=== PATIENT | female | born 1965 | race Caucasian/White ===

== ENCOUNTER 2016-12-14 13:24 | Day surgery (SDC) | payer OTHER ==
[~2016-12-14 13:24] MED LIST: ADVAIR 100-501 EACH IH; ADVAIR 250/501 DISK IH; B-121000 MC1 SL; BENZONATATE100 MG PO; CALCIUM ACETAT667 MG PO; CHRONULAC,CEPHUL1 ML PO; CONSTULOSE10 GM/15 M PO; COUMADIN5 MG PO; CYANOCOBALAM1000 MCG PO; DIALYVITE TABL1 EACH PO; DUONEB 2.5-0.5 M3 ML AEROSOL; DUONEB 2.5-0.5 M3 ML IH; GABAPENTIN300 MG PO; GRALISE300 MG PO; INCRUSE ELLI62.5 MCG IH; IPRATR-ALBUTEROL3 ML IH; LACTULOSE10 GM/151 PO; LEVOFLOXACIN500 MG PO; LEVOFLOXACIN750 MG PO; MICRO-K,K-DUR,10 ME1 PO; MULTIPLE VITAM1 EACH PO; NEURONTIN300 MG PO; NICOTINE PATCH1 EAC2 TD; NOHOMEMEDS; OMEPRAZOLE40 M1 PO; OXAYDO5 MG PO; OXYCODONE10 MG PO; PERCOCET 5/31 TABLET PO; PREDNISONE10 MG PO; PROAIR HFA8.5 GM IH; PROVENTIL HFA6.7 GM IH; SPIRONOLACTONE100 MG PO; SPIRONOLACTONE50 MG PO; TRAMADOL HCL50 MG PO; VITAMIN B-6100 MG PO; WARFARIN SODIU2.5 MG PO; WARFARIN SODIU7.5 MG PO; WARFARIN SODIUM1 MG PO; WARFARIN SODIUM10 MG PO; WARFARIN SODIUM5 MG PO; ZOFRAN4 MG PO
[2016-12-14 15:29] LABS: METH RESISTANT S AUREUS PCR NEGATIVE (NEGATIVE)
[2016-12-14 15:49] LABS: PROBE CHECK PASS; SPECIMEN PROCESSING CONTROL PASS
== END 2016-12-14 17:25 | disposition home or self-care (01) ==
LOC: CATH 13:24
PROVIDERS: Surgery
DX: T82.868A Thrombosis due to vascular prosthetic devices, implants and grafts, initial encounter (principal); Y83.2 Surgical operation with anastomosis, bypass or graft as the cause of abnormal reaction of the patient, or of later complication, without mention of misadventure at the time of the procedure; N18.6 End stage renal disease; Z99.2 Dependence on renal dialysis; K21.9 Gastro-esophageal reflux disease without esophagitis; B18.2 Chronic viral hepatitis C; K74.60 Unspecified cirrhosis of liver; R18.8 Other ascites
CPT/HCPCS: 87641; C1725; C1757; C1769; C1874; C1887; C1894; C2628; J0690; J1644; J2250; J3010; S0020

== ENCOUNTER 2017-01-18 11:55 | Day surgery (SDC) | payer OTHER ==
[2017-01-18 13:52] LABS: METH RESISTANT S AUREUS PCR NEGATIVE (NEGATIVE)
[2017-01-18 13:53] LABS: PROBE CHECK PASS; SPECIMEN PROCESSING CONTROL PASS
== END 2017-01-18 14:00 | disposition home or self-care (01) ==
LOC: CATH 11:55
PROVIDERS: Surgery
DX: T82.858A Stenosis of other vascular prosthetic devices, implants and grafts, initial encounter (principal); I87.1 Compression of vein; Y83.2 Surgical operation with anastomosis, bypass or graft as the cause of abnormal reaction of the patient, or of later complication, without mention of misadventure at the time of the procedure; N18.6 End stage renal disease; Z99.2 Dependence on renal dialysis; J45.909 Unspecified asthma, uncomplicated; M19.90 Unspecified osteoarthritis, unspecified site; Z86.718 Personal history of other venous thrombosis and embolism; Z86.711 Personal history of pulmonary embolism; Z79.01 Long term (current) use of anticoagulants; F17.200 Nicotine dependence, unspecified, uncomplicated
CPT/HCPCS: 87641; C1725; C1769; C1894; J1644; J2250; J3010

== ENCOUNTER 2017-03-04 12:29 | Day surgery (SDC) | payer OTHER ==
[2017-03-04 14:35] LABS: METH RESISTANT S AUREUS PCR NEGATIVE (NEGATIVE); PROBE CHECK PASS; SPECIMEN PROCESSING CONTROL PASS
== END 2017-03-04 15:00 | disposition home or self-care (01) ==
LOC: CATH 12:29
PROVIDERS: Surgery
DX: T82.868A Thrombosis due to vascular prosthetic devices, implants and grafts, initial encounter (principal); T82.858A Stenosis of other vascular prosthetic devices, implants and grafts, initial encounter; Y83.1 Surgical operation with implant of artificial internal device as the cause of abnormal reaction of the patient, or of later complication, without mention of misadventure at the time of the procedure; Y83.2 Surgical operation with anastomosis, bypass or graft as the cause of abnormal reaction of the patient, or of later complication, without mention of misadventure at the time of the procedure; N18.6 End stage renal disease; Z99.2 Dependence on renal dialysis
CPT/HCPCS: 87641; C1725; C1757; C1769; C1894; C2628; J0690; J1644; J2250; J3010; S0020

== ENCOUNTER → 2017-03-21 | Outpatient (CLI) | payer OTHER ==
[~2017-03-21] MED LIST changes: +BENADRYL25 MG PO; +MAGNESIUM400 M1 PO; +PLAVIX75 MG PO
== END | disposition home or self-care (01) ==
LOC: CDC 14:23
DX: I21.3 ST elevation (STEMI) myocardial infarction of unspecified site (principal); I25.10 Atherosclerotic heart disease of native coronary artery without angina pectoris
CPT/HCPCS: 93000

== ENCOUNTER 2017-03-22 13:25 | Day surgery (SDC) | payer OTHER ==
[~2017-03-22] VITALS: Ht 175.3 cm; Wt 58.0 kg
[~2017-03-22 13:25] MED LIST changes: -BENADRYL25 MG PO
[2017-03-22 14:12] LABS: EOSINOPHIL (%) 1.4 % (0-5); EOSINOPHIL COUNT 0.1 K/uL (0-0.3); HEMATOCRIT 38.8 % (36.0-46.0); IMMATURE GRANULOCYTE (%) 0.3 % (0.0-0.7); INSTRUMENT ABS NEUTROPHIL CT 6.8 K/uL; LYMPHOCYTE COUNT 1.2 K/uL (1.0-2.8); MCHC 31.4 G/DL (30.0-36.0); MCV 98.5 FL (83-99); MEAN PLAT.VOLUME 8.4 uM^3 (9.5-12.4); MONOCYTE (%) 5.7 % (3-12); MONOCYTE COUNT 0.5 K/uL (0-0.8); NEUTROPHIL (%) 78.2 % (45-76); NEUTROPHIL COUNT 6.8 K/uL (1.8-6.4); PLATELET COUNT 161 K/uL (156-360); RBC DIS.WIDTH-CV 15.7 % (11.8-14.6); RBC DIS.WIDTH-SD 56.2 % (39-53); RED BLOOD COUNT 3.94 M/uL (3.80-5.20); WHITE BLOOD COUNT 8.7 K/uL (4.1-10.2)
[2017-03-22] MEDS ORDERED: BENADRYL25 MG PO (14:12)
[2017-03-22 14:20] VITALS: BP 98/66
[2017-03-22 14:33] LABS: ANION GAP 9 MEQ/L (2-14); CHLORIDE 95 MEQ/L (99-109); POTASSIUM 4.4 MEQ/L (3.7-5.4); SAMPLE HEMOLYSIS CHECK 0; SAMPLE ICTERIC CHECK 0; SAMPLE LIPEMIA CHECK 0; SODIUM 133 MEQ/L (136-147)
[2017-03-22 14:39] LABS: GFR ESTIMATE (CALCULATED) 25 mL/min/; GLUCOSE 89 mg/dL (70-99); UREA NITROGEN (BUN) 10 mg/dL (9-23)
[2017-03-22 15:34] LABS: METH RESISTANT S AUREUS PCR NEGATIVE (NEGATIVE)
[2017-03-22 15:45] LABS: PROBE CHECK PASS; SPECIMEN PROCESSING CONTROL PASS
[2017-03-22 20:35] VITALS: BP 113/68
== END 2017-03-22 20:40 | disposition home or self-care (01) ==
LOC: SDC
PROVIDERS: Surgery
PROC: 05WY0JZ Revision of Synthetic Substitute in Upper Vein, Open Approach (ICD-10-PCS; principal; 2017-03-22)
DX: T82.898A Other specified complication of vascular prosthetic devices, implants and grafts, initial encounter (principal); N18.6 End stage renal disease; Z99.2 Dependence on renal dialysis; Y83.2 Surgical operation with anastomosis, bypass or graft as the cause of abnormal reaction of the patient, or of later complication, without mention of misadventure at the time of the procedure
CPT/HCPCS: 80048; 85025; 87641; C1768; C2628; J0690; J1644; J2250; J2720; J3010

== ENCOUNTER 2017-05-12 23:35 | Emergency (ER) | payer OTHER ==
[~2017-05-12] VITALS: Ht 172.7 cm; Wt 61.2 kg
[~2017-05-12 23:35] MED LIST changes: +BENADRYL25 MG PO
[2017-05-13 01:04] LABS: HEMATOCRIT 34.6 % (36.0-46.0); MCH 32.1 PG (29.0-34.0); MCHC 31.8 G/DL (30.0-36.0); MCV 100.9 FL (83-99); MEAN PLAT.VOLUME 8.3 uM^3 (9.5-12.4); NRBC (%) 0.2 /100 WBC (0-0); PLATELET COUNT 115 K/uL (156-360); RBC DIS.WIDTH-CV 14.7 % (11.8-14.6); RBC DIS.WIDTH-SD 51.3 % (39-53); RED BLOOD COUNT 3.43 M/uL (3.80-5.20); WHITE BLOOD COUNT 8.7 K/uL (4.1-10.2)
[2017-05-13 01:16] LABS: CHLORIDE 104 mEq/L (99-109); POTASSIUM 4.5 mEq/L (3.7-5.4); SODIUM 140 mEq/L (136-147)
[2017-05-13 01:17] LABS: GLUCOSE 87 mg/dL (70-99)
[2017-05-13 01:19] LABS: ANION GAP 9 MEQ/L (2-14)
[2017-05-13 01:21] LABS: GFR ESTIMATE (CALCULATED) 15 mL/min/
[2017-05-13 01:22] LABS: UREA NITROGEN (BUN) 32 mg/dL (9-23)
[2017-05-13 01:32] LABS: PROTHROMBIN TIME 52.6 (9.2-11.2); PTT 47.1 (25-32)
[2017-05-13 01:47] LABS: INTER. NORMALIZED RATIO 4.9
[2017-05-13 02:55] VITALS: BP 134/72
== END 2017-05-13 03:04 | disposition left against medical advice (07) ==
LOC: EME 23:35
PROVIDERS: Emergency Medicine
DX: R22.32 Localized swelling, mass and lump, left upper limb (principal); Z86.718 Personal history of other venous thrombosis and embolism; Z79.01 Long term (current) use of anticoagulants; F17.200 Nicotine dependence, unspecified, uncomplicated
CPT/HCPCS: 80048; 85027; 85610; 85730; 93971; 99281; 99284

== ENCOUNTER 2017-06-06 06:56 | Day surgery (SDC) | payer OTHER ==
[~2017-06-06] VITALS: Ht 172.7 cm; Wt 58.1 kg
[~2017-06-06 06:56] MED LIST changes: +PANTOPRAZOLE SO40 MG PO
[2017-06-06 09:09] LABS: METH RESISTANT S AUREUS PCR NEGATIVE (NEGATIVE)
[2017-06-06 09:11] LABS: PROBE CHECK PASS; SPECIMEN PROCESSING CONTROL PASS
== END 2017-06-06 10:02 | disposition home or self-care (01) ==
LOC: CATH 06:56
PROVIDERS: Surgery
DX: T82.318A Breakdown (mechanical) of other vascular grafts, initial encounter (principal); I87.1 Compression of vein; N18.6 End stage renal disease; Z99.2 Dependence on renal dialysis; J44.9 Chronic obstructive pulmonary disease, unspecified; M19.90 Unspecified osteoarthritis, unspecified site; Z86.711 Personal history of pulmonary embolism; Z86.718 Personal history of other venous thrombosis and embolism; Z79.01 Long term (current) use of anticoagulants; F17.200 Nicotine dependence, unspecified, uncomplicated; Y83.2 Surgical operation with anastomosis, bypass or graft as the cause of abnormal reaction of the patient, or of later complication, without mention of misadventure at the time of the procedure
CPT/HCPCS: 87641; C1725; C1769; C1894; J1644; J2250; J3010

== ENCOUNTER 2017-07-18 07:00 | Day surgery (SDC) | payer OTHER ==
[~2017-07-18] VITALS: Ht 172.7 cm; Wt 59.0 kg
[2017-07-18 08:55] LABS: METH RESISTANT S AUREUS PCR NEGATIVE (NEGATIVE)
[2017-07-18 09:10] LABS: PROBE CHECK PASS; SPECIMEN PROCESSING CONTROL PASS
== END 2017-07-18 09:40 | disposition home or self-care (01) ==
LOC: CATH 07:00
PROVIDERS: Surgery
PROC: 057Y3DZ Dilation of Upper Vein with Intraluminal Device, Percutaneous Approach (ICD-10-PCS; principal; 2017-07-18)
DX: T82.858A Stenosis of other vascular prosthetic devices, implants and grafts, initial encounter (principal); N18.6 End stage renal disease; Z99.2 Dependence on renal dialysis; Z79.02 Long term (current) use of antithrombotics/antiplatelets; Z79.01 Long term (current) use of anticoagulants
CPT/HCPCS: 87641; C1725; C1769; C1874; C1894; J1644; J2250; J3010

== ENCOUNTER 2017-10-16 14:55 | Day surgery (SDC) | payer OTHER ==
[~2017-10-16] VITALS: Ht 172.7 cm; Wt 59.0 kg
[2017-10-16 16:27] LABS: METH RESISTANT S AUREUS PCR NEGATIVE (NEGATIVE)
[2017-10-16 17:43] LABS: PROBE CHECK PASS; SPECIMEN PROCESSING CONTROL PASS
== END 2017-10-16 16:35 | disposition home or self-care (01) ==
LOC: CATH 14:55
PROVIDERS: Surgery
DX: T82.858A Stenosis of other vascular prosthetic devices, implants and grafts, initial encounter (principal); N18.6 End stage renal disease; Z99.2 Dependence on renal dialysis; Z79.01 Long term (current) use of anticoagulants
CPT/HCPCS: 87641; C1725; C1769; C1894; J1644; J2250; J3010